=== PATIENT | female | born 1940 | race Caucasian/White ===

== ENCOUNTER 2018-11-06 06:55 | Day surgery (SDC) | payer OTHER ==
[2018-11-01 12:31] LABS: Absolute Lymphocytes (CBC) 1.4 K/uL (0.7-4.9); Absolute Monocytes 0.6 K/uL (0.1-1.3); Absolute Neutrophil 4.5 K/uL (1.8-8.0); Basophils % 0.4 % (0-1.3); Eosinophils % 1.5 % (0-4.4); Hematocrit 44.1 % (36.0-45.0); Lymphocytes % 20.8 % (15.3-44.8); RBC Red Blood Cell Count 4.71 M/uL (3.86-4.86)
[2018-11-01 12:34] LABS: Protime INR 0.95
[2018-11-01 12:42] LABS: Potassium 4.4 mmol/L (3.5-5.1)
--- NOTE | 2018-11-01 12:54 | RAD REPORT ---
EXAM DESCRIPTION: RAD - Chest Pa And Lat (2 Views) - 11/01/2018 12:23 pm CLINICAL HISTORY: Preop chest, patient pending cardiac catheterization COMPARISON: Portable January 2015, two view chest August 2009 TECHNIQUE: PA and lateral views of the chest were obtained. FINDINGS: The lungs are fibrotic without a focal mass or infiltrate. No failure or volume overload. Heart size is upper normal. Pulmonary vasculature within normal limits. No pleural effusion or pneum othorax seen. Severe degenerative and postsurgical changes are present in the partially imaged right shoulder. Thoracic vertebrae are osteopenic. A 50% compression fracture is present in the lower thor acic spine. This is new from 2009 but is not otherwise dated. No aortic abnormality. IMPRESSION: Fibrotic lung pattern without acute cardiopulmonary finding. Lower thoracic compression fracture without lytic, sclerotic or blastic component. This is new from 010 but is not otherwise dated.
--- OUTSIDE RECORDS SUMMARY | 2018-11-06 06:57 | XMS REPORT | Clinical Summary ---
:1940 Author Organization [facility] Address [address] [place] [address] Care Team Providers Name Role Phone Milind Mendiola MD Primary Care Provider Allergies No Known Allergies Medications Medication Sig Dispensed Refills Start Date End Date Status gabapentin Take 300 mg by 0 Active (NEURONTIN) 300 mg mouth 2 (two) capsule times a day. amlodipine-benazepril Take 1 capsule 0 Active (LOTREL) 5-20 mg per by mouth daily. capsule anastrozole Take 1 mg by 0 Active (ARIMIDEX) 1 mg chemo mouth daily. tablet SIMBRINZA 1-0.2 % Administer 1 0 09/18/2017 Active drops,suspension drop to both eyes nightly. CHOLECALCIFEROL, Take 2,000 Units 0 Active VITAMIN D3, (VITAMIN by mouth daily. D3 ORAL) cyanocobalamin Take 1,000 mcg 0 Active (VITAMIN B-12) 1000 by mouth daily. MCG tablet acetaminophen Take 500 mg by 0 Active (TYLENOL) 500 MG mouth every 6 tablet (six) hours as needed for mild pain. sod phos di, mono-K Take 1 tablet by 120 tablet 0 10/14/2017 11/13/2017 phos mono (PHOSPHA mouth 4 (four) 250 NEUTRAL) 250 mg times a day for tablet per tablet 30 days. Active Problems Problem Noted Date Hiatal hernia 10/10/2017 Encounters Date Type Specialty Care Team Description 11/23/2017 Office Visit General Surgery Malcolm Pena Esophageal stenosis MD Kirsten (Primary Dx) 11/10/2017 Hospital Encounter Radiology Malcolm Pena S/P dilatation of esophageal stricture; MD Kirsten Hiatal hernia; Status post Karie fundoplication after 11/05/2017 Family History Medical History Relation Name Comments Heart disease Father Cancer Mother Heart disease Mother Relation Name Status Comments Father Mother Social History Tobacco Use Types Packs/Day Years Used Date Never Smoker Smokeless Tobacco: Never Used Tobacco Cessation: Counseling Given: No Alcohol Use Drinks/Week oz/Week Comments Yes 1 Shots of liquor 0.6 once a day Sex Assigned at Date Recorded Not on file Job Start Date Occupation Industry Not on file Not on file Not on file Travel History Travel Start Travel End No recent travel history available. Last Filed Vital Signs Vital Sign Reading Time Taken Blood Pressure - - Pulse - - Temperature - - Respiratory Rate - - Oxygen Saturation - - Inhaled Oxygen Concentration - - Weight 64 kg (141 lb 3.2 oz) 11/23/2017 3:02 PM CDT Height 152.4 cm (5') 11/23/2017 3:02 PM CDT Body Mass Index 27.58 11/23/2017 3:02 PM CDT Plan of Treatment Health Maintenance Due Date Last Done Comments SHINGLES VACCINES (#1) 1992 65+ PNEUMOCOCCAL VACCINE (1 of 2 - PCV13) 2007 PNEUMOCOCCAL POLYSACCHARIDE VACCINE AGE 65 AND OVER 2007 INFLUENZA VACCINE 03/07/2018 Implants Implanted Type Area Airline Station Agent Device Shelf Model / Identifier Expiration Serial / Date Lot Dilator Bln Espgl Pylrc Clnc Wire Gde [id number] 8-10mm Cre P - [id number] Cardiovascular N/A: [facility] [id number] / Implanted: 02/23/2017 (Quantity not on file) Implants N/A / Dilator Baln Fxdwr [id number] 10-11-12mm Cre - [id number] Surgical N/A: [facility] [id number] / Implanted: 03/16/2017 (Quantity not on file) Implants; N/A / Expanders; Extenders; Surgical Wires Dilator Baln Fxdwr [id number] 10-11-12mm Cre - [id number] Surgical N/A: [facility] [id number] / Implanted: 05/19/2017 (Quantity not on file) Implants; N/A / Expanders; Extenders; Surgical Wires Procedures Procedure Name Priority Date/Time Associated Diagnosis Comments FL ESOPHAGRAM Routine 11/10/2017 10:41 S/P dilatation of Results for this COMPLETE AM CDT esophageal stricture procedure are in Hiatal hernia the results Status post Karie section. fundoplication after 11/05/2017 Results FL Esophagram Complete (11/10/2017 10:41 AM CDT) Narrative Performed At EXAMINATION:FL ESOPHAGRAM COMPLETE [facility] CLINICAL HISTORY:Z98.890 Other specified postprocedural states, Z87.19 Personal history of other diseases of the digestive system, difficulty swallowing, Postoperative assesment of esophageal stricture dilationHiatal hernia repairand Karie Fundoplication COMPARISON:None. [facility] DOSE: 11.10 mGy FINDINGS: Swallowed barium passed into the stomach without esophageal obstruction. A few tertiary contractions are compatible with presbyesophagus. In the distal esophagus proximal to the gastroesophageal junction there is a persisting narrowed esophageal contrast column. Here it is narrowed to 10 mm. This is about 4.3 cm proximal to the gastroesophageal junction. IMPRESSION: Distal esophageal stricture measuring 10 mm. Presbyesophagus. [id number] Procedure Note Interface, Radiology Results Incoming - 11/10/2017 3:23 PM CDT EXAMINATION: FL ESOPHAGRAM COMPLETE CLINICAL HISTORY: Z98.890 Other specified postprocedural states, Z87.19 Personal history of other diseases of the digestive system, difficulty swallowing, Postoperative assesment of esophageal stricture dilation Hiatal hernia repair and Karie Fundoplication COMPARISON: None. RADIATION DOSE: 11.10 mGy FINDINGS: Swallowed barium passed into the stomach without esophageal obstruction. A few tertiary contractions are compatible with presbyesophagus. In the distal esophagus proximal to the gastroesophageal junction there is a persisting narrowed esophageal contrast column. Here it is narrowed to 10 mm. This is about 4.3 cm proximal to the gastroesophageal junction. IMPRESSION: Distal esophageal stricture measuring 10 mm. Presbyesophagus. [id number] Performing Organization Address City/State/Zipcode Phone Number [facility] [address] [place] [address] after 11/05/2017 Insurance Payer Benefit Plan / Group Subscriber ID Type Phone Address MEDICARE MEDICARE PART A AND B xxxxxxxxxx Medicare [place], [place] FOR LIFE xxxxxxxxx Advance Directives Patient has advance care planning documents on file. For more information, please contact:Saravanan Mcginnis[address] [place] [address]
[2018-11-06] MEDS ORDERED: LIDOCAINE 1% MPF 30 ML VIAL ONE (07:09)
[2018-11-06] MEDS ORDERED: HEPA 1000U/500MLS 2,000 UNIT/1,000 ML BAG IV ONE (07:09)
[2018-11-06] MEDS ORDERED: NA CHLORIDE 0.9% 500 ML ONE (07:29)
[2018-11-06] MEDS ORDERED: FENTANYL CITR 100 MCG/2 ML ONE ×2 (08:12→11:50)
[2018-11-06] MEDS ORDERED: ATROPINE SULF 1 MG/10 ML SYR IV ONE (08:12)
[2018-11-06] MEDS ORDERED: MIDAZOLAM HCL 2 MG/2 ML INJ ONE (08:12)
[2018-11-06] MEDS ORDERED: NA CHLORIDE 0.9% 0 ML ONE (08:12)
[2018-11-06 12:46] VITALS: BP 160/71; TEMP 97; O2SAT 98
--- NOTE | 2018-11-06 17:00 | OP ---
Surgeon: Bethel Rendon MD Procedures: Left heart catheterization, coronary and left ventricular angiography. Procedure Findings: Normal coronary arteries. Normal left ventricular ejection fraction. Normal pr essures. Procedure In Detail: The patient was brought to the cardiac laborer bituminous paving in a fasting state, sedated wit h Versed and fentanyl. Prepared and draped in usual sterile fashion. Because of a history of breast cancer, we did not use her right arm. There was some mild lymphedema. We used the right femoral ar mumtaz. Tissues around the artery were anesthetized with 1% lidocaine. The artery was entered using a n 18-gauge needle, cannulated with a short J-wire, which allowed us to put a 4-Tajik sheath in place . This was used for the rest of the procedure with no exchanges. At the end of the procedure, an an giogram was done through the sheath. Adequate anatomy was seen and we closed the artery with Angio-S eal device. We used a JL4 to angiogram the left, 3DRC to angiogram the right and an angled pigtail t o cross the valve and angiogram left ventricle and measure pressures. At the end the procedure, cath eters were removed over a wire. No complications from the procedure. Estimated Blood Loss: 10 cc. Metal Model Maker: Darrell Yan. LAURA/CRISTINA Voice ID: [id number] Report ID: [id number]
== END 2018-11-06 12:48 | disposition home or self-care (01) ==
LOC: CCL 06:55
PROVIDERS: ATTEND Internal Medicine
DX: I25.118 Atherosclerotic heart disease of native coronary artery with other forms of angina pectoris (principal); E78.2 Mixed hyperlipidemia; I10 Essential (primary) hypertension; C50.911 Malignant neoplasm of unspecified site of right female breast; Z79.899 Other long term (current) drug therapy
CPT/HCPCS: 85025; 80048; 36415; 85610; 85730; 71046; 93458; C1893; C1760; J2250; J3010 ×2; J0583

== ENCOUNTER 2020-05-26 06:25 | Day surgery (SDC) | payer OTHER ==
--- OUTSIDE RECORDS SUMMARY | 2020-05-26 06:27 | XMS REPORT | Clinical Summary ---
:1940 Author Organization [facility] Address [address] [place] [address] Care Team Providers Name Role Phone Marlena Leahy MD, William Primary Care Provider Allergies No Known Active Allergies Medications Medication Sig Dispensed Refills Start Date End Date Status gabapentin (NEURONTIN) Take 300 mg by 0 Active 300 mg capsule mouth 2 (two) times a day. amlodipine-benazepril Take 1 capsule by 0 Active (LOTREL) 5-20 mg per mouth daily. capsule anastrozole (ARIMIDEX) Take 1 mg by mouth 0 Active 1 mg chemo tablet daily. SIMBRINZA 1-0.2 % Administer 1 drop 0 09/18/2017 Active drops,suspension to both eyes nightly. CHOLECALCIFEROL, Take 2,000 Units 0 Active VITAMIN D3, (VITAMIN by mouth daily. D3 ORAL) cyanocobalamin Take 1,000 mcg by 0 Active (VITAMIN B-12) 1000 mouth daily. MCG tablet acetaminophen Take 500 mg by 0 A ctive (TYLENOL) 500 MG mouth every 6 tablet (six) hours as needed for mild pain. Active Problems Problem Noted Date Hiatal hernia 10/10/2017 Surgical History Surgery Date Site/Laterality Comments MASTECTOMY 08/07/2014 Right - 08/06/20 15 FRACTURE SURGERY right upper arm , left ankle EYE SURGERY BREAST SURGERY ESOPHAGOGASTRODUODENOSCOPY N/A Proce dure: EGD W/ DILATION W/ (EGD) 7 FLURO; Surgeon: John Patrick MD; Loc ation: [facility]; Serv ice: Gastroenterology ; Laterality: N/A; Dye Lot #: [id number] Medical devices from this surgery are in t he Implants section. ESOPHAGOGASTRODUODENOSCOPY N/A Proce dure: EGD W/ DIL; (EGD) 7 Surgeon: John Patrick MD; Location: [facility] EN DOSCOPY; Service: Gastroe nterology; Laterality: N/A; Medical devices from this surgery are in t he Implants section. ESOPHAGOGASTRODUODENOSCOPY 05/19/20 N/A Proce dure: (EGD) 17 ESOPHAGOGASTRODU ODENOSCOPY (EGD)with balloo n dilation; Surgeon: John Patrick MD; Location: [facility] EN DOSCOPY; Service: Gastroe nterology; Laterality: N/A; Medical devices from this surgery are in t he Implants section. CATARACT EXTRACTION W/ INTRAOCULAR LENS IMPLANT, BILATERAL COLONOSCOPY GASTRECTOMY 10/10/2017 Abdomen/Left Procedure: OPEN JOSELINE FUNDOPLICATION R EPIAR OF HIATAL HERNIA; Surgeon: Malcolm Pena MD ; Location: [facility]; Se rvice: General; Latera lity: Left; Medical History Medical History Date Comments Neuropathy Osteoporosis Glaucoma Hiatal hernia Cataract Cancer (HCC) right breast cancer. last chemo and xrt 2014 Anesthesia Pt....nphap, CFROM / Family...nfhap Hypertension presently takes bp m edication on PRN basis only H/O gastroesophageal reflux (GERD) Swallowing difficulty Arthritis hands Family History Medical History Relation Name Comments Heart disease Father Cancer Mother Heart disease Mother Relation Name Status Comments Father Mother Social History Tobacco Use Types Packs/Day Years Used Date Never Smoker Smokeless Tobacco: Never Used Tobacco Cessation: Counseling Given: No Alcohol Use Drinks/Week oz/Week Comments Yes 1 Shots of liquor 1.0 once a day Sex Assigned at Date Recorded Not on file Last Filed Vital Signs Not on file Plan of Treatment Health Maintenance Due Date Last Done Comments SHINGLES VACCINES (#1) 1992 65+ PNEUMOCOCCAL VACCINE (1 of 1 - PPSV23) 2007 INFLUENZA VACCINE 03/07/2020 Implants Implanted Type Area Interactive Graphic Designer Device Shelf Model / Identifier Expiration Serial / Date Lot Dilator Bln Espgl Pylrc Clnc Wire Gde [id number] 8-10mm Cre P - [id number] Cardiovascular N/A: [facility] [id number] / Implanted: 02/23/2017 at [facility] (Quantity not on file) Implants N/A / Dilator Baln Fxdwr [id number] 10-11-12mm Cre - [id number] Surgical N/A: [facility] [id number] / Implanted: 03/16/2017 at [facility] (Quantity not on file) Implants; N/A / Expanders; Extenders; Surgical Wires Dilator Baln Fxdwr [id number] 10-11-12mm Cre - [id number] Surgical N/A: [facility] [id number] / Implanted: 05/19/2017 at [facility] (Quantity not on file) Implants; N/A / Expanders; Extenders; Surgical Wires Results Not on fileafter 05/26/2019 Insurance Payer Benefit Plan / Subscriber ID Effective Dates Phone Addre ss Type Group MEDICARE MEDICARE PART A [id number] 2007-Present [facility] [place] Medicare AND B FOR LIFE [id number] 2011-Present [facility] SUPPLEMENT Advance Directives For more information, please contact: [phone] Type Date Recorded Patient Electronic Warfare Officer Explanati on Advance Directives, Living Will 02/23/2017 1:10 PM and Medical Power of It Infrastructure Specialist
[2020-05-26] MEDS ORDERED: Ringers Lactate 1,000 ML IV ONE (06:56)
[2020-05-26] MEDS ORDERED: GABAPENTIN 300 MG CAP PO ONE (07:15)
[2020-05-26] MEDS ORDERED: propofoL 200 MG/20 ML VIAL IV ONE (07:29)
[2020-05-26] MEDS ORDERED: FENTANYL CITR 100 MCG/2 ML ONE (07:29)
[2020-05-26] MEDS ORDERED: LIDOCAINE 1% W/EPI 1:100,000 MDV 20 ML VIAL ONE (07:29)
[2020-05-26] MEDS ORDERED: LIDOCAINE 1% MPF 5 ML VIAL ONE (07:29)
[2020-05-26] MEDS ORDERED: NA CHLORIDE 0.9% 1,000 ML ONE (07:30)
[2020-05-26] MEDS ORDERED: dexAMETHasone 4 MG/ML VIAL ONE (08:27)
[2020-05-26] MEDS ORDERED: ONDANSETRON 4 MG/2 ML VIAL ONE (08:27)
[2020-05-26] MEDS ORDERED: KETOROLAC 30 MG/ML INJ ONE (08:27)
[2020-05-26 09:05] VITALS: O2SAT 97
--- NOTE | 2020-05-26 09:26 | OP ---
Date of Procedure: 05/26/2020 Surgeon: Fifi Addison MD Data Conversion Operator: None. Preoperative Diagnoses: Postmenopausal bleeding, endometrial polyp, breast cancer, on long-term Arim idex. Postoperative Diagnoses: Postmenopausal bleeding, endometrial polyp, breast cancer, on long-term Mike midex. Procedures Performed: Operative hysteroscopy, polypectomy x3 with MyoSure Lite, and dilation and cur ettage. Anesthesia: LMA. Complications: None. Drains: None. Condition: Stable. Specimens: Endometrial polyps and curettings. Estimated Blood Loss: Minimal. Findings: There were 3 endometrial polyps, 1 of the fundus that was slightly pale, the tiniest; the other to right lateral wall, posterior wall, and these were pedunculated, vascular, soft. They were removed completely, all 3 of them, and adequate sampling on all 4 hernandez was performed. End ometrium appeared to be unremarkable. Indications: The patient is a 79-year-old with diagnosis of breast cancer 5 years ago, on Arimidex, presented with postmenopausal bleeding for evaluation. On transvaginal ultrasound, her endometrium a ppeared to be heterogeneous and thick. On office hysteroscopy, 3 polyps were found. Attempt was mad e to perform curettage and samples, but it was difficult to remove the polyps. The sample did not sh ow any cancer, however, inadequate endometrium was obtained and the polyps were not removed, so she w as consented for operative hysteroscopy, polypectomy here in the hospital as well as sampling with th e MyoSure Lite device, which is the D and C. The bleeding, infection, perforation of the uterus were all discussed with the patient, consented, and brought to the OR. Description Of Procedure: After preoperative consent was discussed with the patient as well as with her daughter by her bedside, we brought her back. Questions were answered to their satisfaction. She was placed in a supine fashion. General anesthesia given with LMA, placed in a dorsal lithotomy position. Speculum placed to expose the cervix, injected with 1% lidocaine mixed with 1:100,000 epin ephrine, 5 cc at 12 o'clock, 4 and 8 o'clock positions, 7 to 8 cc each for a paracervical block. The n, prep x3 with Betadine was done. Tenaculum was used to hold the anterior lip of the cervix. SlimL ine hysteroscope used to enter the uterine cavity and visualized the polyps, then dilated to 18-Frenc h. MyoSure Lite scope was then taken and introduced using the MyoSure Lite device. Polypectomy was performed. The normal saline was used for distention medium and the deficit was very minimal. The p olyps were completely resected. Endometrium was sampled from all 4 hernandez. After ensuring the specim en was adequate and was retrieved, the device was removed. Instrument, needle, and sponge counts wer e done and were correct. After removing all the instruments, the patient was recovered from anesthes ia and taken to PACU in stable condition. She has a 1 week followup appointment with me and the resu lts will be discussed with her daughter, who is in the waiting room. She will be on regular diet, di scharged home, restart all her medications tomorrow, ambulate early. PEEWEE Voice ID: [id number] Report ID: [id number]
[2020-05-26 10:58] VITALS: BP 157/56; TEMP 98.3
== END 2020-05-26 09:58 | disposition home or self-care (01) ==
LOC: OR 06:25
PROVIDERS: ATTEND Obstetrics & Gynecology
PROC: 0UDB8ZX Extraction of Endometrium, Via Natural or Artificial Opening Endoscopic, Diagnostic (ICD-10-PCS; 2020-05-26)
PROC: 0UBC8ZX Excision of Cervix, Via Natural or Artificial Opening Endoscopic, Diagnostic (ICD-10-PCS; principal; 2020-05-26 07:30)
DX: N95.0 Postmenopausal bleeding (principal); N84.0 Polyp of corpus uteri; E78.5 Hyperlipidemia, unspecified; M81.0 Age-related osteoporosis without current pathological fracture; Z85.3 Personal history of malignant neoplasm of breast; Z20.828 Contact with and (suspected) exposure to other viral communicable diseases
CPT/HCPCS: 88305; 58558; U0002; J2704; J1100; J3010; J7120; J7030; J2405

== ENCOUNTER 2020-06-26 10:29 | Emergency (ER) | payer OTHER ==
--- OUTSIDE RECORDS SUMMARY | 2020-06-26 10:52 | XMS REPORT | Clinical Summary ---
:1940 Author Organization [facility] Address [address] [place] [address] Care Team Providers Name Role Phone Marlena [...] FLURO; Surgeon: John Patrick MD; Loc ation: [facility] ENDOSCOPY; Serv ice: Gastroenterology ; Laterality: N/A; Dye Lot #: [id number] Medical devices from this surgery are in t he Implants section. ESOPHAGOGASTRODUODENOSCOPY N/A Proce dure: EGD W/ DIL; (EGD) 7 Surgeon: John Patrick MD; Location: [facility] EN DOSCOPY; Service: Gastroe nterology; Laterality: N/A; Medical devices from this surgery are in t he Implants section. ESOPHAGOGASTRODUODENOSCOPY 05/19/20 N/A Proce dure: (EGD) 17 ESOPHAGOGASTRODU ODENOSCOPY (EGD)with balloo n dilation; Surgeon: John Patrick MD; Location: [facility] EN DOSCOPY; Service: Gastroe nterology; Laterality: N/A; Medical devices from this surgery are in t he Implants section. CATARACT EXTRACTION W/ INTRAOCULAR LENS IMPLANT, BILATERAL COLONOSCOPY GASTRECTOMY 10/10/2017 Abdomen/Left Procedure: OPEN JOSELINE FUNDOPLICATION R EPIAR OF HIATAL HERNIA; Surgeon: Malcolm Pena MD ; Location: [facility]; Se rvice: General; Latera [...] INFLUENZA VACCINE 03/07/2020 Implants Implanted Type Area Bilingual Branch Manager Device Shelf Model / Identifier Expiration Serial / Date Lot Dilator Bln Espgl Pylrc Clnc Wire Gde [id number] 8-10mm Cre P - [id number] Cardiovascular N/A: [facility] [id number] / Implanted: 02/23/2017 at [facility] (Quantity not on file) Implants N/A / Dilator Baln Fxdwr [id number] 10-11-12mm Cre - [id number] Surgical N/A: [facility] [id number] / Implanted: 03/16/2017 at [facility] (Quantity not on file) Implants; N/A / Expanders; Extenders; Surgical Wires Dilator Baln Fxdwr [id number] 10-11-12mm Cre - [id number] Surgical N/A: [facility] [id number] / Implanted: 05/19/2017 at [facility] (Quantity not on file) Implants; N/A / Expanders; Extenders; Surgical Wires Results Not on fileafter 06/26/2019 Insurance Payer Benefit Plan / Subscriber ID Effective Dates Phone Addre ss Type Group MEDICARE MEDICARE PART A [id number] 2007-Present [facility] [place] Medicare AND B FOR LIFE [id number] 2011-Present [facility] SUPPLEMENT Advance Directives For more information, please contact: [phone] Type Date Recorded Patient Clinical Technologist Explanati on Advance Directives, Living Will 02/23/2017 1:10 PM and Medical Power of Netsuite Consultant
[2020-06-26] MEDS ORDERED: HYDROCODONE/APAP 7.5/325 MG TAB ONE (11:23)
--- NOTE | 2020-06-26 11:55 | RAD REPORT ---
EXAM DESCRIPTION: RAD - Femur Right - 06/26/2020 11:16 am CLINICAL HISTORY: fall;Pain COMPARISON: Abdomen Pelvis W Contrast dated 05/19/2020 FINDINGS: Mild degenerative changes present involving the right hip. 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 No acute fracture or dislocation.
--- NOTE | 2020-06-26 12:38 | RAD REPORT ---
EXAM DESCRIPTION: US - Extremity Venous Uni Ltd - 06/26/2020 12:33 pm CLINICAL HISTORY: PAIN Leg swelling and edema. COMPARISON: EXT VENOUS UNI LTD dated 06/11/2014 FINDINGS: Right lower extremity venous system was interrogated with Doppler technique. Normal flow, compressibility and augmentation was noted. There is no DVT present. IMPRESSION: No evidence of right lower extremity deep venous thrombosis.
--- NOTE | 2020-06-26 12:44 | ER ---
Nurse's Notes [facility] Name: Neha Esteban Age: 79 yrs Sex: Female : 1940 Arrival Date: 06/26/2020 Time: 10:31 Bed 8 Private MD: Diagnosis: Pain in right leg-from fall;Elevated blood-pressure reading, without diagnosis of hypertension Presentation: 06/26 10:41 Chief complaint: Patient states: Tripped and fell Monday night. Has pain to posterior ll1 right leg since. Pain from hip to knee. Coronavirus screen: Client denies travel out of the [place] in the last 14 days. At this time, the client does not indicate any symptoms associated with coronavirus-19. The client reports previous COVID testing was negative. Ebola Screen: Patient denies travel to an Ebola-affected area in the 21 days before illness onset. Initial Sepsis Screen: Does the patient meet any 2 criteria? No. Patient's initial sepsis screen is negative. Does the patient have a suspected source of infection? Yes: Bone or joint infection. Risk Assessment: Do you want to hurt yourself or someone else? Patient reports no desire to harm self or others. Onset of symptoms was June 20, 2020. 10:41 Method Of Arrival: Wheelchair ll1 10:41 Acuity: LILLY 3 ll1 Historical: - Allergies: 10:44 No Known Drug Allergies; ll1 - PSHx: 10:44 Mastectomy, Right; Ankle surgery; Hysterectomy; ll1 - Immunization history:: Flu vaccine is up to date. - Social history:: Smoking status: Patient denies any tobacco usage or history of. Screenin:07 Abuse screen: Denies threats or abuse. Nutritional screening: No deficits noted. em Tuberculosis screening: No symptoms or risk factors identified. Fall Risk Fall in past 12 months (25 points). Assessment: 11:15 General: Appears in no apparent distress. comfortable, Behavior is calm, cooperative, em appropriate for age. Pain: Complains of pain in right leg Pain currently is 3 out of 10 on a pain scale. Neuro: Level of Consciousness is awake, alert, obeys commands, Oriented to person, place, time, situation, Appropriate for age. Cardiovascular: Capillary refill < 3 seconds Patient's skin is warm and dry. Respiratory: Airway is patent Respiratory effort is even, unlabored, Respiratory pattern is regular, symmetrical. Derm: Skin is intact, is fragile, is thin, Skin is pink, warm \T\ dry. Musculoskeletal: Range of motion: intact in all extremities. 12:30 Reassessment: Patient appears in no apparent distress at this time. Patient and/or em family updated on plan of care and expected duration. Pain level reassessed. Patient is alert, oriented x 3, equal unlabored respirations, skin warm/dry/pink. Patient states feeling better. Patient states symptoms have improved. Vital Signs: 10:41 BP 202 / 86; Pulse 78; Resp 17; Temp 98.5; Pulse Ox 99% ; Weight 72.57 kg; Height 4 ft. ll1 11 in. (149.86 cm); Pain 3/10; 11:00 BP 187 / 96; Pulse 64; Resp 15; Pulse Ox 98% ; Pain 3/10; jl7 12:30 BP 161 / 67; Pulse 67; Resp 18; Pulse Ox 99% on R/A; em 10:41 Body Mass Index 32.32 (72.57 kg, 149.86 cm) ll1 ED Course: 10:31 Patient arrived in ED. ds1 10:32 Michael Hayden PA is PHCP. cp 10:32 Arsh Prieto MD is Attending Physician. cp 10:39 Rafael Hirsch, PATRICIA is Primary Nurse. em 10:43 Triage completed. ll1 10:43 Arm band placed on Patient placed in an exam room, on a stretcher. ll1 11:07 Patient has correct armband on for positive identification. Bed in low position. Call em light in reach. Side rails up X2. 11:13 XRAY Femur RIGHT In Process Unspecified. EDMS 12:33 US Extremity Venous Unilateral Ltd In Process Unspecified. EDMS 13:00 No provider procedures requiring assistance completed. Patient did not have IV access em during this emergency room visit. Administered Medications: 11:15 Drug: Pierre (7.5 mg-325 mg) 1 tabs Route: PO; em 12:30 Follow up: Response: No adverse reaction em 11:32 Not Given (Physician Discretion): Tylenol 1000 mg PO once jl7 Outcome: 12:44 Discharge ordered by MD. cp 13:00 Discharged to home via wheelchair. em 13:00 Condition: good 13:00 Discharge instructions given to patient, Instructed on discharge instructions, follow up and referral plans. medication usage, Demonstrated understanding of instructions, follow-up care, medications, Prescriptions given X 2. 13:01 Patient left the ED. em Signatures: Dispatcher [employer] Rafael Pelaez, RN RN em Lianet Mohr ds1 Michael Hayden PA PA cp Leal, Jahala RN RN jl7 Nisha Mohan RN RN ll1
--- NOTE | 2020-06-26 12:45 | EDPHYS ---
Physician Documentation [facility] Name: Neha Esteban Age: 79 yrs Sex: Female : 1940 Arrival Date: 06/26/2020 Time: 10:31 Bed 8 Private MD: ED Physician Arsh Prieto HPI: 06/26 10:45 This 79 yrs old Female presents to ER via Wheelchair with complaints of Leg cp Pain. 10:45 The complaints affect the right upper leg. Context: resulted from the patient falling, cp the patient can fully bear weight, the patient is able to ambulate, with mild difficulty. 10:45 Onset: The symptoms/episode began/occurred 6 day(s) ago. cp 10:45 Modifying factors: the symptoms are aggravated by weight bearing. cp Historical: - Allergies: 10:44 No Known Drug Allergies; ll1 - PSHx: 10:44 Mastectomy, Right; Ankle surgery; Hysterectomy; ll1 - Immunization history:: Flu vaccine is up to date. - Social history:: Smoking status: Patient denies any tobacco usage or history of. ROS: 10:50 MS/extremity: Positive for pain, of the right upper leg, Negative for decreased range cp of motion, deformity, paresthesias. 10:50 Constitutional: Negative for body aches, chills, fever. cp 10:50 Cardiovascular: Negative for chest pain, edema, palpitations. 10:50 Respiratory: Negative for cough, shortness of breath, wheezing. 10:50 Back: Negative for pain at rest, pain with movement. 10:50 Neuro: Negative for altered mental status, dizziness, headache, weakness. 10:50 All other systems are negative. Exam: 10:55 Constitutional: The patient appears in no acute distress, alert, awake, cp non-diaphoretic, non-toxic, well developed, well nourished. 10:55 Head/Face: Normocephalic, atraumatic. cp 10:55 Chest/axilla: Inspection: normal. 10:55 Cardiovascular: Rate: normal. 10:55 Respiratory: the patient does not display signs of respiratory distress, Respirations: normal. 10:55 Abdomen/GI: Exam negative for discomfort, distension, guarding, Inspection: abdomen appears normal. 10:55 Back: pain, is absent, ROM is normal. 10:55 Musculoskeletal/extremity: Extremities: grossly normal except: noted in the right leg: pain, tenderness, There is no evidence of decreased ROM, deformity, swelling, Perfusion: the extremity is normally perfused throughout, the right leg Sensation intact. 10:55 Skin: no rash present. Vital Signs: 10:41 BP 202 / 86; Pulse 78; Resp 17; Temp 98.5; Pulse Ox 99% ; Weight 72.57 kg; Height 4 ft. ll1 11 in. (149.86 cm); Pain 3/10; 11:00 BP 187 / 96; Pulse 64; Resp 15; Pulse Ox 98% ; Pain 3/10; jl7 12:30 BP 161 / 67; Pulse 67; Resp 18; Pulse Ox 99% on R/A; em 10:41 Body Mass Index 32.32 (72.57 kg, 149.86 cm) ll1 MDM: 10:37 Patient medically screened. cp 11:30 Test interpretation: by ED physician or midlevel provider: xrays of left femur negative cp for fracture. 12:44 Data reviewed: vital signs, nurses notes, radiologic studies, plain films, ultrasound, cp and as a result, I will discharge patient. 12:44 Counseling: I had a detailed discussion with the patient and/or guardian regarding: the cp historical points, exam findings, and any diagnostic results supporting the discharge/admit diagnosis, radiology results, to return to the emergency department if symptoms worsen or persist or if there are any questions or concerns that arise at home. Response to treatment: the patient's symptoms have mildly improved after treatment, and as a result, I will discharge patient. 06/26 10:39 Order name: XRAY Femur RIGHT; Complete Time: 12:40 cp 06/26 12:40 Interpretation: Report reviewed. cp 06/26 10:39 Order name: US Extremity Venous Unilateral Ltd; Complete Time: 12:40 cp 06/26 12:40 Interpretation: Report reviewed. cp Administered Medications: 11:15 Drug: Adrian (7.5 mg-325 mg) 1 tabs Route: PO; em 12:30 Follow up: Response: No adverse reaction em 11:32 Not Given (Physician Discretion): Tylenol 1000 mg PO once jl7 Disposition: 13:05 Chart complete. cp 14:01 Co-signature as Attending Physician, Arsh Prieto MD. rn Disposition: 06/26/20 12:44 Discharged to Home. Impression: Pain in right leg - from fall, Elevated blood-pressure reading, without diagnosis of hypertension. - Condition is Stable. - Discharge Instructions: How to Take Your Blood Pressure, [id number], Form - Blood Pressure Record Sheet. - Prescriptions for Mobic 7.5 mg Oral Tablet - take 1 tablet by ORAL route once daily take with food; 20 tablet. Tramadol 50 mg Oral Tablet - take 1 tablet by ORAL route every 8 hours as needed; 12 tablet. - Medication Reconciliation Form, Thank You Letter, Antibiotic Education, Prescription Opioid Use form. - Follow up: Private Physician; When: 2 - 3 days; Reason: Recheck today's complaints. - Problem is new. - Symptoms have improved. Signatures: Dispatcher [employer] Rafael Pelaez RN RN em Arsh Prieto MD MD rn Page, Corey, PA PA cp Leal, Jahala RN RN jl7 Nisha Mohan RN RN ll1 Corrections: (The following items were deleted from the chart) 12:45 12:44 06/26/2020 12:44 Discharged to Home. Impression: Pain in right leg - from fall. cp Condition is Stable. Forms are Medication Reconciliation Form, Thank You Letter, Antibiotic Education, Prescription Opioid Use. Follow up: Private Physician; When: 2 - 3 days; Reason: Recheck today's complaints. Problem is new. Symptoms have improved. cp 13:01 12:45 06/26/2020 12:44 Discharged to Home. Impression: Pain in right leg - from fall; em Elevated blood-pressure reading, without diagnosis of hypertension. Condition is Stable. Discharge Instructions: How to Take Your Blood Pressure, [id number], Form - Blood Pressure Record Sheet. Prescriptions for Mobic 7.5 mg Oral Tablet - take 1 tablet by ORAL route once daily take with food; 20 tablet, Tramadol 50 mg Oral Tablet - take 1 tablet by ORAL route every 8 hours as needed; 12 tablet. and Forms are Medication Reconciliation Form, Thank You Letter, Antibiotic Education, Prescription Opioid Use. Follow up: Private Physician; When: 2 - 3 days; Reason: Recheck today's complaints. Problem is new. Symptoms have improved. cp
[2020-06-26 23:54] VITALS: TEMP 98.5
[2020-06-26 23:58] VITALS: BP 161/67; O2SAT 99
== END 2020-06-26 13:01 | disposition home or self-care (01) ==
LOC: ER 10:29
DX: R03.0 Elevated blood-pressure reading, without diagnosis of hypertension (principal); W19.XXXA Unspecified fall, initial encounter; Y93.9 Activity, unspecified; Y92.9 Unspecified place or not applicable
CPT/HCPCS: 93971; 99283

== ENCOUNTER 2023-01-21 22:51 | Emergency (ER) | payer OTHER ==
[2023-01-21] MEDS ORDERED: ONDANSETRON 4 MG/2 ML VIAL ONE (23:23)
[2023-01-21] MEDS ORDERED: FENTANYL CITR 100 MCG/2 ML ONE (23:23)
[2023-01-21 23:36] LABS: Absolute Lymphocytes (CBC) 0.9 K/uL (0.7-4.9); Hematocrit 36.4 % (36.0-45.0); Lymphocytes % 4.2 % (15.3-44.8); MCV 90.9 fL (80-100); MPV 7.3 fL (7.6-11.3); Protime INR 0.96
[2023-01-21 23:43] LABS: SARS-CoV-2 Antigen Rapid Res Negative (Negative)
[2023-01-21 23:52] LABS: ALT/SGPT 31 U/L (13-56); AST/SGOT 20 U/L (15-37); Albumin 3.7 g/dL (3.4-5.0); Alkaline Phosphatase 90 U/L (45-117); BUN Blood Urea Nitrogen 10 mg/dL (7-18); Bicarbonate 25 mEq/L (21-32); Bilirubin Total 0.2 mg/dL (0.2-1.0); Glomerular Filtration Rate 93 ml/min (=/>90); Glucose Level 148 mg/dL (74-106); Potassium 4.3 mEq/L (3.5-5.1); Protein, Total 7.2 g/dL (6.4-8.2); Sodium Level 126 mEq/L (136-145); Troponin High Sensitivity 8.5 pg/mL (<58.9)
[2023-01-21 23:53] LABS: Bilirubin Direct < 0.1 mg/dL (0-0.2); Bilirubin Indirect, Calculated ND mg/dL (0.2-0.8)
[2023-01-22] MEDS ORDERED: HYDROMORPHONE HCL 1 MG/ML INJ ONE ×2 (01:19→03:39)
--- NOTE | 2023-01-22 03:11 | EDPHYS ---
Physician Documentation [facility] Name: Neha Esteban Age: 82 yrs Sex: Female : 1940 Arrival Date: 01/21/2023 Time: 22:51 Bed 2 Private MD: ED Physician Max Smith HPI: 01/22 03:09 This 82 yrs old Female presents to ER via EMS with complaints of fall, left sp4 arm pain . 03:09 Pleasant 82-year-old female presents with left arm pain and deformity after falling in sp4 the bathroom just prior to arrival. Patient states she has spent several minutes laying on the floor in the bathroom.. Besides left arm pain she denied any other injury. EMS reported deformity over the left mid humerus and severe pain associated with deformity. Pulses preserved on arrival. . Historical: - Allergies: 01/21 23:03 No Known Allergies; ll3 - Home Meds: 23:03 Lipitor 40 mg oral tablet 1 tab daily [Active]; lisinopril 20 mg Oral tablet daily ll3 [Active]; - PMHx: 23:03 Hypertensive disorder; Hypercholesterolemia; ll3 - Immunization history:: Client reports receiving the 2nd dose of the Covid vaccine. - Social history:: Smoking status: Patient denies any tobacco usage or history of. - Family history:: not pertinent. ROS: 01/22 03:09 Constitutional: Negative for fever, chills, and weight loss, Eyes: Negative for injury, sp4 pain, redness, and discharge, ENT: Negative for injury, pain, and discharge, Neck: Negative for injury, pain, and swelling, Cardiovascular: Negative for chest pain, palpitations, and edema, Respiratory: Negative for shortness of breath, cough, wheezing, and pleuritic chest pain, Abdomen/GI: Negative for abdominal pain, nausea, vomiting, diarrhea, and constipation, Back: Negative for injury and pain, : Negative for injury, bleeding, discharge, and swelling, MS/Extremity: Positive for left upper arm deformity, left upper arm pain, left upper arm discoloration. Skin: Negative for injury, rash, and discoloration, Neuro: Negative for headache, weakness, numbness, tingling, and seizure, Psych: Negative for depression, anxiety, Allergy/Immunology: Negative for hives, rash, and allergies Endocrine: Negative for neck swelling, polydipsia, polyuria, polyphagia, and weight changes Hematologic/Lymphatic: Negative for swollen nodes, abnormal bleeding, and unusual bruising Exam: 03:09 Constitutional: This is a well developed, well nourished patient who is awake, alert, sp4 frail elderly female, in distress secondary to pain Head/Face: Normocephalic, atraumatic. Eyes: Pupils equal round and reactive to light, extra-ocular motions intact. Lids and lashes normal. Conjunctiva and sclera are not injected. Cornea within normal limits. Periorbital areas with no swelling, redness, or edema. ENT: Nares patent. No nasal discharge, no septal abnormalities noted. Tympanic membranes are normal and external auditory canals are clear. Oropharynx with no redness, swelling, or masses, exudates, or evidence of obstruction, uvula midline. Mucous membranes moist. Neck: Trachea midline, no thyromegaly or masses palpated, and no cervical lymphadenopathy. Supple, full range of motion without nuchal rigidity, or vertebral point tenderness. Chest/axilla: Normal chest wall appearance and motion. Nontender with no deformity. No lesions are appreciated. Cardiovascular: Regular rate and rhythm with a normal S1 and S2. No gallops, murmurs, or rubs. Normal PMI, no JVD. No pulse deficits. Respiratory: Lungs have equal breath sounds bilaterally, clear to auscultation and percussion. No rales, rhonchi or wheezes noted. No increased work of breathing, no retractions or nasal flaring. Abdomen/GI: Soft, non-tender, with normal bowel sounds. No distension or tympany. No guarding or rebound. No evidence of tenderness throughout. Back: No spinal tenderness. No costovertebral tenderness. Skin: Warm, dry with normal turgor. Normal color with no rashes, no lesions, and no evidence of cellulitis. MS/ Extremity: Pulses equal, no cyanosis. Neurovascular intact. Left upper arm deformity indicative of closed humerus fracture. Discoloration and swelling. Moderate to severe pain. Preserved peripheral pulses. Marked decrease of the range of motion. Other extremity exam is unremarkable Neuro: Awake and alert, GCS 15, oriented to person, place, time, and situation. Cranial nerves II-XII grossly intact. Motor strength 5/5 in all extremities. Sensory grossly intact. Psych: Awake, alert, with orientation to person, place and time. Behavior, mood, and affect are within normal limits 03:09 ECG was reviewed by the Attending Physician. EKG at 2322 normal sinus rhythm at rate sp4 of 68, no ST elevation or depression, no ectopy, overall normal EKG Vital Signs: 01/21 23:00 BP 156 / 85; Pulse 78; Resp 16; Temp 98.5(O); Pulse Ox 100% on R/A; Weight 61.23 kg ll3 (R); Height 4 ft. 11 in. (R); Pain 8/10; 23:34 BP 136 / 73; Pulse 69; Resp 16; Pulse Ox 94% on R/A; kd3 0618 00:18 Pulse 70; Resp 19; Pulse Ox 93% on R/A; kd3 01:19 BP 128 / 53; Pulse 73; Resp 14; Pulse Ox 96% on 2 lpm NC; ll3 03:04 BP 126 / 47; Pulse 73; Resp 19; Pulse Ox 99% on 2 lpm NC; ll3 04:00 BP 138 / 45; Pulse 72; Resp 20; Pulse Ox 96% on R/A; ll3 01/21 23:00 Body Mass Index 27.27 (61.23 kg, 149.86 cm) ll3 01/21 23:00 Pain Scale: Adult ll3 Procedures: 03:09 Splinting: Splint applied to left bicep using Shoulder immobilizer. applied by nurse. sp4 Examined by me, post splint application: neurovascular intact, 2+ distal pulses palpable, brisk capillary refill noted, Patient tolerated well. MDM: 01/21 23:03 Patient medically screened. sp4 01/22 03:09 Differential Diagnosis Closed fracture left humerus, dislocation left shoulder, left sp4 elbow fracture. Data reviewed: vital signs, nurses notes, lab test result(s), CBC, electrolytes, hepatic panel, EKG, radiologic studies, plain films. Consideration of Admission/Observation Escalation of care including admission/observation considered. Management of patient was discussed with the following: Government Program Manager: Patient discussed with orthopedist Dr. Bonilla who states that this particular repair is beyond his expert opinion, he advised patient to be transferred out. Patient was discussed with Dr. Campbell with [facility] who states that this should be managed nonoperatively.. 03:09 ED course: Patient remains in moderate to severe pain which was handled with Dilaudid sp4 to some extent. Patient states she would like second opinion by orthopedist at the trauma center. Patient will be discussed with [facility] trauma team for transfer for additional opinion . She was placed in left shoulder immobilizer. Neurovascular status of the left extremity remains intact. . 03:09 ED course: Patient apparently has history of a right humerus fracture with fixation sp4 hardware. Patient's chest x-ray revealed obliquely oriented left humerus fracture. ED course: FINDINGS: Bones/joints: Left humeral spiral fracture extending from the neck to the mid diaphysis. There is greater than one shaft width lateral displacement of the major distal fracture fragment. No dislocation. Soft tissues: Unremarkable. IMPRESSION: Left humeral fracture. . 01/21 22:59 Order name: Basic Metabolic Panel; Complete Time: 19:38 sp4 01/21 22:59 Order name: CBC with Diff; Complete Time: 19:38 sp4 01/21 22:59 Order name: LFT's; Complete Time: 19:38 sp4 01/21 22:59 Order name: PT-INR; Complete Time: 19:38 sp4 01/21 22:59 Order name: Troponin HS; Complete Time: 19:38 sp4 01/21 23:00 Order name: SARS RAPID; Complete Time: 19:38 sp4 01/21 22:59 Order name: XRAY Chest (1 view) sp4 01/22 00:32 Order name: Humerus Left EDMS 01/21 22:59 Order name: EKG; Complete Time: 23:00 sp4 01/21 22:59 Order name: EKG - Nurse/Tech; Complete Time: 23:27 sp4 01/21 22:59 Order name: IV Saline Lock; Complete Time: 23:28 sp4 01/21 22:59 Order name: Labs collected and sent; Complete Time: 23:28 sp4 01/22 01:09 Order name: Shoulder Immobilizer; Complete Time: 03:22 sb4 01/22 01:09 Order name: Sling; Complete Time: 03:22 sb4 EC:09 Rate is 68 beats/min. Rhythm is regular, Normal Sinus Rhythm. QRS Strong is Normal. HI sp4 interval is normal. QRS interval is normal. QT interval is normal. T waves are Normal. No ST changes noted. Clinical impression: Normal ECG. Interpreted by me. Administered Medications: 01/21 23:28 Drug: fentaNYL (PF) IVP 50 mcg Route: IVP; Site: right antecubital; ll3 01/22 00:30 Follow up: Response: No adverse reaction; Marked relief of symptoms ll3 01/21 23:28 Drug: Ondansetron IVP 4 mg Route: IVP; Site: right antecubital; ll3 01/22 01:18 Follow up: Response: No adverse reaction ll3 01:18 Drug: HYDROmorphone IVP 1 mg Route: IVP; Site: right antecubital; ll3 03:59 Follow up: Response: No adverse reaction; Marked relief of symptoms ll3 03:40 Drug: HYDROmorphone IVP 1 mg Route: IVP; Site: right antecubital; ll3 03:59 Follow up: Response: Pain is decreased ll3 03:59 Follow up: Response: No adverse reaction ll3 Disposition Summary: 01/22/23 03:10 Transfer Ordered Transfer Location: [facility] sb4 Reason: Higher level of care sb4 Condition: Fair sb4 Problem: new sb4 Symptoms: are unchanged sb4 Accepting Physician: Dr. Richardson(01/22/23 03:59) sb4 Diagnosis - left humeral 2 part spiral fracture sb4 - Left spiral humerus fracture with displacement. Closed left humerus midshaft sp4 fracture Discharge Instructions: - Discharge Summary Sheet ll3 Forms: - SBAR form ll3 - Medication Reconciliation Form sb4 Signatures: Dispatcher [employer] EDPavel Cruz RN RN ll3 Stacey Yeager PA-C PA-C sb4 Max Smith MD MD sp4 Corrections: (The following items were deleted from the chart) 00:31 00:30 Humerus Left ordered. EDMS EDMS 00:31 00:30 Shoulder Left 2 View ordered. EDMS EDMS 01:11 01:01 Chest Single View+RAD.RAD.BRZ ordered. EDMS EDMS 01:11 01:02 Shoulder Left 2 View+RAD.RAD.BRZ ordered. EDMS EDMS 01:11 01:02 Humerus Left+RAD.RAD.BRZ ordered. EDMS EDMS 03:19 03:10 Dr. Richardson sb4 sp4 03:59 03:19 Dr. Richardson sp4 sb4
--- NOTE | 2023-01-22 03:11 | ER ---
Nurse's Notes [facility] Name: Neha Esteban Age: 82 yrs Sex: Female : 1940 Arrival Date: 01/21/2023 Time: 22:51 Bed 2 Private MD: Diagnosis: left humeral 2 part spiral fracture;Left spiral humerus fracture with displacement. Closed left humerus midshaft fracture Presentation: 01/21 23:00 Chief complaint: EMS states: Toned out for a fall, pt states she tripped over flip ll3 flops while walking to bathroom, states landed on left arm, obvious deformity noted to left upper arm, pt c/o pain to left arm /10. Coronavirus screen: Vaccine status: Patient reports receiving the 2nd dose of the covid vaccine. At this time, the client does not indicate any symptoms associated with coronavirus-19. Ebola Screen: No symptoms or risks identified at this time. Initial Sepsis Screen: Does the patient meet any 2 criteria? No. Patient's initial sepsis screen is negative. Does the patient have a suspected source of infection? No. Patient's initial sepsis screen is negative. Risk Assessment: Do you want to hurt yourself or someone else? Patient reports no desire to harm self or others. Onset of symptoms was January 21, 2023. Care prior to arrival: None. Mechanism of Injury: Fall from standing position. 23:00 Method Of Arrival: EMS: [facility] ll3 23:00 Acuity: LILLY 2 ll3 Triage Assessment: 23:03 General: Appears uncomfortable, Behavior is calm, cooperative. Pain: Complains of pain ll3 in left arm Pain does not radiate. Pain currently is 8 out of 10 on a pain scale. Pain began 1 hour ago. Is continuous. Neuro: Chu Agitation-Sedation Scale (RASS): 0 - Alert and Calm Level of Consciousness is awake, alert, obeys commands, Oriented to person, place, time, situation. Respiratory: Respiratory effort is even, unlabored, Respiratory pattern is regular, symmetrical. Derm: Skin is pink, warm \T\ dry. Musculoskeletal: deformity noted to left upper arm, pt states she braced her fall on the left arm. Injury Description: Deformity sustained to left bicep is angulated, was sustained 30-60 minutes ago. Historical: - Allergies: 23:03 No Known Allergies; ll3 - Home Meds: 23:03 Lipitor 40 mg oral tablet 1 tab daily [Active]; lisinopril 20 mg Oral tablet daily ll3 [Active]; - PMHx: 23:03 Hypertensive disorder; Hypercholesterolemia; ll3 - Immunization history:: Client reports receiving the 2nd dose of the Covid vaccine. - Social history:: Smoking status: Patient denies any tobacco usage or history of. - Family history:: not pertinent. Screenin/18 01:19 [facility] ED Fall Risk Assessment (Adult) History of falling in the last 3 months, ll3 including since admission Yes- single mechanical fall (1 pt) Confusion or Disorientation No (0 pts) Intoxicated or Sedated No (0 pts) Impaired Gait No (0 pts) Mobility Assist Device Used No (0 pt) Altered Elimination No (0 pt) Score/Fall Risk Level 0 - 2 = Low Risk Oriented to surroundings, Maintained a safe environment, Educated pt \T\ family on fall prevention, incl call for assistance when getting out of bed. Abuse screen: Denies threats or abuse. Denies injuries from another. Nutritional screening: No deficits noted. Tuberculosis screening: No symptoms or risk factors identified. Assessment: 01/21 23:03 General: See triage assessment. ll3 01/22 02:00 Reassessment: No changes from previously documented assessment. Patient and/or family ll3 updated on plan of care and expected duration. Pain level reassessed. Patient is alert, oriented x 3, equal unlabored respirations, skin warm/dry/pink. Vital Signs: 01/21 23:00 BP 156 / 85; Pulse 78; Resp 16; Temp 98.5(O); Pulse Ox 100% on R/A; Weight 61.23 kg ll3 (R); Height 4 ft. 11 in. (R); Pain 8/10; 23:34 BP 136 / 73; Pulse 69; Resp 16; Pulse Ox 94% on R/A; kd3 18 00:18 Pulse 70; Resp 19; Pulse Ox 93% on R/A; kd3 01:19 BP 128 / 53; Pulse 73; Resp 14; Pulse Ox 96% on 2 lpm NC; ll3 03:04 BP 126 / 47; Pulse 73; Resp 19; Pulse Ox 99% on 2 lpm NC; ll3 04:00 BP 138 / 45; Pulse 72; Resp 20; Pulse Ox 96% on R/A; ll3 01/21 23:00 Body Mass Index 27.27 (61.23 kg, 149.86 cm) ll3 01/21 23:00 Pain Scale: Adult ll3 ED Course: 01/21 22:53 Patient arrived in ED. sb4 22:54 Max Smith MD is Attending Physician. sp4 23:01 Annamarie Ellis, RN is Primary Nurse. kd3 23:03 Triage completed. ll3 23:03 Arm band placed on Patient placed in an exam room, on a stretcher, on teletypesetter monitor, ll3 on pulse oximetry. 23:29 Initial lab(s) drawn, by me, sent to lab. Inserted saline lock: 20 gauge in right ll3 antecubital area, using aseptic technique. Blood collected. 01/22 00:46 XRAY Chest (1 view) In Process Unspecified. EDMS 00:46 Humerus Left In Process Unspecified. EDMS 01:20 Patient has correct armband on for positive identification. Bed in low position. Call ll3 light in reach. Side rails up X 1. Adult w/ patient. 01:40 Initiated transfer to [facility], spoke with Alethea. wm 02:36 Initiated transfer to [facility]. wm 02:44 Pt accepted for transfer to [facility] ER by Dr. Richardson per Yany Nunez. wm 04:00 No provider procedures requiring assistance completed. Patient transferred, IV remains ll3 in place. Administered Medications: 01/21 23:28 Drug: fentaNYL (PF) IVP 50 mcg Route: IVP; Site: right antecubital; ll3 01/22 00:30 Follow up: Response: No adverse reaction; Marked relief of symptoms ll3 01/21 23:28 Drug: Ondansetron IVP 4 mg Route: IVP; Site: right antecubital; ll3 01/22 01:18 Follow up: Response: No adverse reaction ll3 01:18 Drug: HYDROmorphone IVP 1 mg Route: IVP; Site: right antecubital; ll3 03:59 Follow up: Response: No adverse reaction; Marked relief of symptoms ll3 03:40 Drug: HYDROmorphone IVP 1 mg Route: IVP; Site: right antecubital; ll3 03:59 Follow up: Response: Pain is decreased ll3 03:59 Follow up: Response: No adverse reaction ll3 Medication: 04:01 VIS not applicable for this client. ll3 Outcome: 03:10 ER care complete, transfer ordered by . sb4 03:59 Patient left the ED. sb4 04:00 Transferred by ground EMS to [facility], Transfer form completed. X-rays sent ll3 w/ patient. 04:00 Condition: stable 04:00 Instructed on the need for transfer, Demonstrated understanding of instructions. Signatures: Dispatcher [employer] EDMS Joceline Valdovinos Pavel James RN RN ll3 Annamarie Ellis RN RN kd3 Stacey Yeager PATannerC PALogan sb4 Max Smith MD MD sp4 Corrections: (The following items were deleted from the chart) 01:48 01:[address] [facility] 04:02 00:00 Reassessment: No changes from previously documented assessment. Patient and/or ll3 family updated on plan of care and expected duration. Pain level reassessed. Patient is alert, oriented x 3, equal unlabored respirations, skin warm/dry/pink. ll3 04:03 03:00 Reassessment: No changes from previously documented assessment. Patient and/or ll3 family updated on plan of care and expected duration. Pain level reassessed. Patient is alert, oriented x 3, equal unlabored respirations, skin warm/dry/pink. ll3
[2023-01-22 04:18] VITALS: TEMP 98.5
[2023-01-22 04:27] VITALS: BP 126/47; O2SAT 99
--- NOTE | 2023-01-23 14:04 | RAD REPORT ---
EXAM DESCRIPTION: RAD - Chest Single View - 01/22/2023 12:44 am CLINICAL HISTORY: CHEST PAIN TECHNIQUE: Frontal view of the chest. COMPARISON: No relevant prior studies available. FINDINGS: Lungs: Unremarkable. No consolidation. Pleural space: Unremarkable. No pneumothorax. Heart: Unremarkable. No cardiomegaly. Mediastinum: Unremarkable. Bones/joints: Obliquely oriented minimally displaced left humeral neck/proximal metadiaphyseal frac ture. Partially visualized right humeral hardware transfixing a remote fracture. Severe degenerat manuel changes at the right glenohumeral articulation. Soft tissues: Surgical clips project over the right axilla and chest wall. Vasculature: Thoracic aortic atherosclerosis. IMPRESSION: Left humeral fracture. Electronically signed by: Salo Arzola MD 01/22/2023 2:12 AM CDT Due to temporary technical issues with the PACS/Fluency reporting system, reports are being signed by the in house radiologist without review as a courtesy to ensure prompt reporting. The interpreting r adiologist is fully responsible for the content of the report.
--- NOTE | 2023-01-23 14:19 | RAD REPORT ---
EXAM DESCRIPTION: RAD - Humerus Left - 01/22/2023 12:44 am CLINICAL HISTORY: FALL, TRAUMA, R/O FX TECHNIQUE: Frontal and lateral views of the left humerus. COMPARISON: No relevant prior studies available. FINDINGS: Bones/joints: Left humeral spiral fracture extending from the neck to the mid diaphysis. There is greater than one shaft width lateral displacement of the major distal fracture fragment. No dislocation. Soft tissues: Unremarkable. IMPRESSION: Left humeral fracture. Electronically signed by: Salo Arzola MD 01/22/2023 2:15 AM CDT Due to temporary technical issues with the PACS/Fluency reporting system, reports are being signed by the in house radiologist without review as a courtesy to ensure prompt reporting. The interpreting r adiologist is fully responsible for the content of the report.
--- NOTE | 2023-01-23 17:52 | EKG ---
Test Date: 2023-01-21 Test Time: 23:22:21 Search Analyst: MEASUREMENT RESULTS: Intervals: Rate: 68 VA: 158 QRSD: 90 QT: 402 QTc: 427 [place]: P: 63 VA: 158 QRS: -46 T: 67 INTERPRETIVE STATEMENTS: Normal sinus rhythm Left anterior fascicular block Abnormal ECG Compared to ECG 09/01/2016 09:41:37 Left anterior fascicular block now present Left-axis deviation no longer present Electronically Signed On 01-23-23 17:49:52 CDT by Eddie Valente
== END 2023-01-22 03:59 | disposition short-term general hospital (02) ==
LOC: ER 22:51
DX: S42.342A Displaced spiral fracture of shaft of humerus, left arm, initial encounter for closed fracture (principal); Z20.822 Contact with and (suspected) exposure to COVID-19; I10 Essential (primary) hypertension
CPT/HCPCS: 93005; 85025; 80048; 36415; 85610; 80076; 84484; 71045; 73060; 96375; 96374; 99285; 87811; J3010; J1170 ×2; J2405

== ENCOUNTER 2024-11-11 12:31 | Emergency (ER) | payer OTHER ==
--- NOTE | 2024-11-11 13:27 | RAD REPORT ---
EXAM: CT brain without contrast HISTORY: AMS COMPARISON: None TECHNIQUE: Multiple contiguous axial images were obtained and a CT of the brain without contrast. Sag ittal and coronal reformats were performed. One or more of the following dose reduction techniques were used: Automated exposure control, adjust ment of the mA and/or kV according to patient size, and/or iterative reconstruction. FINDINGS: There is a large area of white matter edema involving predominantly the right temporal lobe. There is evidence of extension to involve the splenium of the corpus callosum was well. Zrcco-vy-fqum midline shift of 8 mm is seen. No bleed or hydrocephalus apparent. The calvarium is intact. Mild polypoid mucosal thickening noted in the paranasal sinuses. IMPRESSION: There is a large abnormal area of edema present involving the right temporal lobe predominantly as we ll as the splenium of the corpus callosum. Mass effect towards the left measuring 8 mm is present. No bleed is seen. 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 MRI brain with contrast would be recommended for further evaluation.
[2024-11-11 13:33] LABS: Absolute Basophils 0.1 K/uL (0-0.5); Absolute Eosinophils 0.3 K/uL (0-0.5); Absolute Lymphocytes (CBC) 1.4 K/uL (0.7-4.9); Absolute Monocytes 0.5 K/uL (0.1-1.3); Absolute Neutrophil 2.9 K/uL (1.8-8.0); Hematocrit 42.7 % (36.0-45.0); Hemoglobin 14.3 g/dL (12.0-15.0); Lymphocytes % 27.7 % (15.3-44.8); MCH 31.2 pg (27.0-35.0); MCHC 33.4 g/dL (32.0-36.0); MCV 93.5 fL (80-100); Monocytes % 10.1 % (3.3-12.3); Neutrophils % 55.2 % (41.7-73.7); Platelets 335 thou/uL (152-406); RBC Red Blood Cell Count 4.57 M/uL (3.86-4.86); Red Cell Distribution Width 13.6 % (12.1-15.2)
[2024-11-11] MEDS ORDERED: dexAMETHasone 10 MG/ML VIAL ONE (13:47)
[2024-11-11 13:55] LABS: ALT/SGPT 15 U/L (13-56); Albumin 3.8 g/dL (3.4-5.0); Albumin/Globulin Ratio 1.1 (1.1-1.8); Alkaline Phosphatase 46 U/L (45-117); Anion Gap 8.1 mEq/L (5.0-15.0); BUN Blood Urea Nitrogen 7 mg/dL (7-18); Bicarbonate 26 mEq/L (21-32); Bilirubin Total 0.5 mg/dL (0.2-1.0); Globulin 3.4 g/dL (2.3-3.5); Glomerular Filtration Rate 92 ml/min (=/>90); Glucose Level 116 mg/dL (74-106); Potassium 4.1 mEq/L (3.5-5.1); Protein, Total 7.2 g/dL (6.4-8.2); Sodium Level 129 mEq/L (136-145)
[2024-11-11 13:57] LABS: AST/SGOT < 10 U/L (15-37); Bilirubin Direct < 0.2 mg/dL (0-0.2); Bilirubin Indirect, Calculated 0.3 mg/dL (0.2-0.8)
--- NOTE | 2024-11-11 14:09 | EDPHYS ---
Physician Documentation [facility] Name: Neha Esteban Age: 84 yrs Sex: Female : 1940 Arrival Date: 11/11/2024 Time: 12:31 Bed 20 Private MD: ED Physician Arsh Prieto HPI: 11/11 14:05 This 84 yrs old Female presents to ER via Wheelchair with complaints of Altered Mental rn Status. 14:05 The patient presents with confusion, disorientation. Onset: The symptoms/episode rn began/occurred 6 week(s) ago. Current symptoms: In the emergency department the patient's symptoms are unchanged from the initial presentation. The patient has not experienced similar symptoms in the past. Family reports AMS and disorientation for 6 weeks. No trauma. No SEGAL. No Sz. Report disorientation in her own house. No hx of CVA.. Historical: - Allergies: 13:04 No Known Allergies; ap3 - PMHx: 13:04 Hypercholesterolemia; Hypertensive disorder; ap3 - Immunization history:: Client reports receiving the 2nd dose of the Covid vaccine, Flu vaccine is up to date. - Infectious Disease History:: Denies. - Social history:: Smoking status: Patient denies any tobacco usage or history of. - Family history:: not pertinent. - Hospitalizations: : No recent hospitalization is reported. ROS: 14:05 Constitutional: Negative for fever, chills, and weight loss, Cardiovascular: Negative rn for chest pain, palpitations, and edema, Respiratory: Negative for shortness of breath, cough, wheezing, and pleuritic chest pain, Abdomen/GI: Negative for abdominal pain, nausea, vomiting, diarrhea, and constipation, MS/Extremity: Negative for injury and deformity, Skin: Negative for injury, rash, and discoloration, Neuro: Negative for headache, weakness, numbness, tingling, and seizure, Exam: 14:05 Constitutional: This is a well developed, well nourished patient who is awake, alert, rn and in no acute distress. Patient joking Head/Face: Normocephalic, atraumatic. Eyes: Pupils equal round and reactive to light, extra-ocular motions intact. Cardiovascular: Regular rate and rhythm. No pulse deficits. Respiratory: No increased work of breathing, no retractions or nasal flaring. Abdomen/GI: Soft, non-tender MS/ Extremity: Pulses equal, no cyanosis. Neuro: Awake and alert, GCS 15, oriented to person, place, time, and situation. Cranial nerves II-XII grossly intact. Motor strength 5/5 in all extremities. Sensory grossly intact. Requires assistance to get from wheelchair into bed with 2 people. 16:17 ECG was reviewed by the Attending Physician. rn Vital Signs: 13:02 BP 156 / 80; Pulse 62; Resp 16; Temp 97.8; Pulse Ox 98% ; Weight 61.23 kg; Height 4 ft. ap3 10 in. ; Pain 0/10; 15:30 BP 167 / 68; Pulse 64; Resp 19; Pulse Ox 99% ; bp 18:02 BP 173 / 89; Pulse 81; Resp 18; Pulse Ox 99% ; bp 13:02 Body Mass Index 28.21 (61.23 kg, 147.32 cm) ap3 13:02 Pain Scale: Adult ap3 MDM: 12:38 Medical Screening Exam initiated rn 14:08 Differential Diagnosis: CVA, intracranial bleed, volume depletion, Brain mass, rn dementia, vascular dementia. Data reviewed: vital signs, nurses notes, lab test result(s), EKG, radiologic studies, CT scan, and as a result, I will admit patient. Consideration of Admission/Observation Patient was admitted/placed on observation. Escalation of care including admission/observation considered. Counseling: I had a detailed discussion with the patient and/or guardian regarding the historical points, exam findings, and any diagnostic results supporting the discharge/admit diagnosis, the presence of at least one elevated blood pressure reading (>120/80) during this emergency department visit, lab results, radiology results, the need for further work-up and treatment in the hospital, the need to transfer to another facility, for higher level of care, [facility] does not immediately have the required specialist. ED course: CT shows brain mass with moderate swelling. Decadron ordered. Transfer initiated.. 11/11 13:01 Order name: CBC with Diff; Complete Time: 13:44 rn 11/11 13:01 Order name: Basic Metabolic Panel; Complete Time: 14:13 rn 11/11 13:01 Order name: LFT's; Complete Time: 14:13 rn 11/11 13:01 Order name: CT Head Brain wo Cont; Complete Time: 13:44 rn 11/11 13:01 Order name: EKG; Complete Time: 13:01 rn 11/11 13:01 Order name: IV Start; Complete Time: 13:23 rn 11/11 13:01 Order name: EKG - Nurse/Tech; Complete Time: 13:42 rn EC:17 Rate is 59 beats/min. Rhythm is regular. QRS [place] is Normal. [place] interval is normal. QRS rn interval is normal. QT interval is normal. No Q waves. T waves are Normal. No ST changes noted. Clinical impression: Sinus bradycardia. Interpreted by me. Reviewed by me. Administered Medications: 13:52 Drug: Decadron - Dexamethasone IVP 10 mg IVP once Route: IVP; Site: left forearm; bp 18:03 Follow up: Response: No adverse reaction bp Disposition: 14:08 Critical Care:. rn Disposition Summary: 11/11/24 14:09 Transfer Ordered Notes: Transfer Location: [facility] rn Reason: Higher level of care rn Condition: Stable rn Problem: an ongoing problem rn Symptoms: are unchanged rn Accepting Physician: (11/11/24 18:24) bp Diagnosis - Altered mental status, unspecified rn - Brain mass with vasogenic edema rn Forms: - Medication Reconciliation Form rn - SBAR form tavern car attendant time excluding procedures: 14:08 Critical care time: Bedside Care: 35 minutes. Total time: 35 minutes rn Signatures: Dispatcher [employer] Arsh Robles MD MD rn Peltier, Brian RN RN bp Meme Cam RN RN ap3 Corrections: (The following items were deleted from the chart) 18:24 14:09 rn bp
--- NOTE | 2024-11-11 14:09 | ER ---
Nurse's Notes [facility] Name: Neha Esteban Age: 84 yrs Sex: Female : 1940 Arrival Date: 11/11/2024 Time: 12:31 Bed 20 Private MD: Diagnosis: Altered mental status, unspecified;Brain mass with vasogenic edema Presentation: 11/11 13:02 Chief complaint: Patient states: she has been feeling increasingly confused over the ap3 last 4-6 weeks. patient and patients daughter report the patient is not able to locate appropriate rooms in her home, or find her way in the home she been in for approx 40 years. patient denies any pain at this time. Coronavirus screen: At this time, the client does not indicate any symptoms associated with coronavirus-19. Ebola Screen: No symptoms or risks identified at this time. Initial Sepsis Screen: Does the patient meet any 2 criteria? No. Patient's initial sepsis screen is negative. Does the patient have a suspected source of infection? No. Patient's initial sepsis screen is negative. Risk Assessment: Do you want to hurt yourself or someone else? Patient reports no desire to harm self or others. Onset of symptoms is unknown. 13:02 Method Of Arrival: Wheelchair ap3 13:02 Acuity: LILLY 3 ap3 Triage Assessment: 13:04 General: Appears in no apparent distress. Behavior is calm, cooperative, appropriate ap3 for age. Pain: Denies pain. Neuro: Level of Consciousness is awake, alert, obeys commands, Oriented to person, place, time, reports inability to find her way around her home intermittently or locate certain rooms. Cardiovascular: Patient's skin is warm and dry. Respiratory: Airway is patent Respiratory effort is even, unlabored, Respiratory pattern is regular, symmetrical. Historical: - Allergies: 13:04 No Known Allergies; ap3 - PMHx: 13:04 Hypercholesterolemia; Hypertensive disorder; ap3 - Immunization history:: Client reports receiving the 2nd dose of the Covid vaccine, Flu vaccine is up to date. - Infectious Disease History:: Denies. - Social history:: Smoking status: Patient denies any tobacco usage or history of. - Family history:: not pertinent. - Hospitalizations: : No recent hospitalization is reported. Screenin:05 Abuse screen: Denies threats or abuse. Nutritional screening: No deficits noted. ap3 Tuberculosis screening: No symptoms or risk factors identified. 18:02 [facility] ED Fall Risk Assessment (Adult) History of falling in the last 3 months, bp including since admission No falls in past 3 months (0 pts) Confusion or Disorientation No (0 pts) Intoxicated or Sedated No (0 pts) Impaired Gait Yes (1 pt) Mobility Assist Device Used Yes (1 pt) Altered Elimination No (0 pt) Score/Fall Risk Level 0 - 2 = Low Risk Oriented to surroundings. Assessment: 13:04 General: Appears in no apparent distress. comfortable, Behavior is calm, cooperative, bp appropriate for age. 14:10 Reassessment: TRANSFER INITIATED. bp 17:51 Reassessment: No changes from previously documented assessment. Patient is alert, bp oriented x 3, equal unlabored respirations, skin warm/dry/pink. 18:02 Reassessment: REPORT TO RUBEN GOMEZ AT [facility]. TRANSPORT PENDING. bp Vital Signs: 13:02 BP 156 / 80; Pulse 62; Resp 16; Temp 97.8; Pulse Ox 98% ; Weight 61.23 kg; Height 4 ft. ap3 10 in. ; Pain 0/10; 15:30 BP 167 / 68; Pulse 64; Resp 19; Pulse Ox 99% ; bp 18:02 BP 173 / 89; Pulse 81; Resp 18; Pulse Ox 99% ; bp 13:02 Body Mass Index 28.21 (61.23 kg, 147.32 cm) ap3 13:02 Pain Scale: Adult ap3 ED Course: 12:38 Patient arrived in ED. cj3 12:38 Arsh Prieto MD is Attending Physician. rn 12:45 Bubba Chaidez, PATRICIA is Primary Nurse. bp 13:04 Triage completed. ap3 13:05 Patient has correct armband on for positive identification. Bed in low position. Call ap3 light in reach. Side rails up X2. Adult w/ patient. Client placed on continuous cardiac and pulse oximetry monitoring. NIBP monitoring applied. child monitor on. Pulse ox on. NIBP on. 13:05 Arm band placed on right wrist. ap3 13:11 CT Head Brain wo Cont In Process Unspecified. EDMS 13:23 Initial lab(s) drawn, by me, sent to lab. Inserted saline lock: 22 gauge in left bp forearm, using aseptic technique. Blood collected. Flushed with 10 mL NS. 14:24 initiated transfer to [facility]. bd 17:50 pt accepted in transfer to [facility] by dr roe pt going to [facility] bd [id number], admin approval given by Beata Lu rn. 17:53 No provider procedures requiring assistance completed. Patient transferred, IV remains bp in place. 18:02 Provided Education on: NA. bp Administered Medications: 13:52 Drug: Decadron - Dexamethasone IVP 10 mg IVP once Route: IVP; Site: left forearm; bp 18:03 Follow up: Response: No adverse reaction bp Outcome: 14:09 ER care complete, transfer ordered by . rn 18:24 Patient left the ED. bp Signatures: Dispatcher [employer] EDMS Dorys Toledo Roman, MD MD rn Peltier, Brian RN RN bp Meme Cam RN RN ap3 Daisy Granado cj3 Corrections: (The following items were deleted from the chart) 17:53 17:52 BP 167 / 68; Pulse 64bpm; Resp 19bpm; Pulse Ox 99%; bp bp
[2024-11-11 18:33] VITALS: TEMP 97.8
[2024-11-11 18:39] VITALS: O2SAT 99
[2024-11-11 18:44] VITALS: BP 173/89
--- NOTE | 2024-11-12 10:56 | EKG ---
Test Date: 2024-11-11 Test Time: 13:39:21 Director Supply Chain: MARI MEASUREMENT RESULTS: Intervals: Rate: 59 RI: 164 QRSD: 84 QT: 418 QTc: 413 [place]: P: 60 RI: 164 QRS: -28 T: 54 INTERPRETIVE STATEMENTS: Sinus bradycardia Nonspecific T wave abnormality Abnormal ECG Compared to ECG 01/21/2023 23:22:21 T-wave abnormality now present Sinus rhythm no longer present Left anterior fascicular block no longer present Electronically Signed On 11-12-24 10:55:05 CDT by Miller Matute
== END 2024-11-11 18:24 | disposition short-term general hospital (02) ==
LOC: ER 12:31
DX: R41.82 Altered mental status, unspecified (principal); G93.6 Cerebral edema; G93.9 Disorder of brain, unspecified
CPT/HCPCS: 93005; 85025; 80048; 36415; 80076; 70450; 96374; 99284; J1100